=== PATIENT | female | born 1935 | race Caucasian/White ===

== ENCOUNTER 2020-08-04 10:06 | Day surgery (SDC) | payer OTHER ==
[~2020-08-04] VITALS: Ht 157.5 cm; Wt 49.6 kg
--- NOTE | 2020-08-04 11:46 | NUR ---
Ambulatory in Day Surgery. Surgical site prepped with 2% Chlorhexidine cloth wipe. History, Chart, Medications and Allergies reviewed before start of procedure.Lungs clear T/O to Auscultation. Patient confirms NPO status and agrees with scheduled surgery. Patient States Post-Procedure ride home has been arranged. Patient reports completing Chlorhexadine shower X2 prior to admission to hospital.
--- NOTE | 2020-08-04 14:27 | NUR ---
arrived into step recieved patient and report. vs with in patients normal range. dressing cdi and ice pack applied
--- NOTE | 2020-08-04 15:30 | NUR ---
Discharge instructions reviewed with patient. Patient verbalizes understanding. Copy given to patient to take home. Patient States Post-Procedure ride home has been arranged. Discharged via wheelchair to private car for ride home.
== END 2020-08-04 23:27 | disposition home or self-care (01) ==
LOC: ORSCMMR 10:06 → ORD 10:06
PROVIDERS: Orthopaedic Surgery
PROC: 0QSF04Z Reposition Left Patella with Internal Fixation Device, Open Approach (ICD-10-PCS; principal; 2020-08-04 12:00)
DX: S82.032A Displaced transverse fracture of left patella, initial encounter for closed fracture (principal); I10 Essential (primary) hypertension
CPT/HCPCS: C1769; J0690; J1100; J2270; J2405; J2704; J3010; J7120